=== PATIENT | male | born 2000 | race African-American/Black ===

== ENCOUNTER 2019-11-07 01:12 | Outpatient (CLI) | payer BC, SELFPAY ==
[2019-11-07 20:05] LABS: SARS-CoV-2 RNA PCR Negative
== END 2019-11-07 01:13 | disposition home or self-care (01) ==
LOC: ANHCOVIDDT 01:12
PROVIDERS: Visit Provider Otolaryngology
DX: Z01.818 Encounter for other preprocedural examination (principal); Z11.59 Encounter for screening for other viral diseases
CPT/HCPCS: 87635; C9803; U0003

== ENCOUNTER 2019-11-10 01:21 | Day surgery (SDC) | payer BC, SELFPAY ==
[2019-10-28 13:34] VITALS: BMI 32.5
--- NOTE | 2019-11-09 13:14 | WPDANESEPP ---
Anes - Eval Pre Procedure Procedure: Operation Date: 11/10/19 07:30 Proposed Procedures p Bilateral Tonsillectomy - Roshan Shook MD Date/Time: 11/09/19 13:14 Pre Op Diagnosis: Chronic tonsillitis Patient Data Age: 18 Gender: M Height: 1.75 m Weight: 99.79 kg Allergies Allergy/AdvReac Type Severity Reaction Status Date / Time No Known Allergies Allergy Verified 10/28/19 13:35 Home Medications Medication Instructions Recorded Confirmed Type multivitamin 1 tablet PO DAILY 10/28/19 10/28/19 History Patient hx anesthesia problems: none Family hx anesthesia problems: none PMFSH Social History Social History Smoking status: Never smoker Spiritual care concerns: No Exam Day of Procedure 11/09/19 13:14
[2019-11-10] VITALS (10 sets, daily range): BP systolic 109–148; BP diastolic 65–76; PULSE 72–114; RESP 16–20; TEMP 36.2–36.9; O2SAT 94–100
[2019-11-10] MEDS: LACTATED RINGERS 1,000 ML 30 ML IV CONT ×2 (06:40→08:00)
--- NOTE | 2019-11-10 07:01 | WPDANESEPPF ---
Anes - Initial Pre Proc Eval Procedure: Operation Date: 11/10/19 07:30 Proposed Procedures p Bilateral Tonsillectomy - Roshan Shook MD Date/Time: 11/10/19 07:01 Surgeon: Roshan Shook MD Pre Op Diagnosis: Chronic tonsillitis Patient Data Age: 18 Gender: M Height: 5 ft 9 in Weight: 98.6 kg Last Vital Signs Temp 97.1 F L 11/10/19 06:51 Pulse 75 11/10/19 06:51 BP 109/65 11/10/19 06:51 Pulse Ox 99 11/10/19 06:51 Allergies Allergy/AdvReac Type Severity Reaction Status Date / Time No Known Allergies Allergy Verified 10/28/19 13:35 Home Medications Medication Instructions Recorded Confirmed Type multivitamin 1 tablet PO DAILY 10/28/19 10/28/19 History Patient hx anesthesia problems: none Family hx anesthesia problems: none PMFSH Social History Social History Smoking status: Never smoker Spiritual care concerns: No Anes - Eval Final PreProcedure Day of Procedure 11/10/19 07:01 Patient weight: normal Heart: regular rate and rhythm Lungs: clear to auscultation Airway: Mallampati scale class II Neurological: alert and oriented Last oral intake: >/= 8 hours ASA classification: I Emergent: no Anesthetic plan: proceed Anesthesia type and monitoring: general ETT and standard monitoring Informed Consent: The patient's anesthetic plan and its attendant risks and benefits were discussed with the patient/family/POA. Questions were solicited and answers provided to the satisfaction of the patient/family/POA.
--- NOTE | 2019-11-10 07:13 | WPDHPUPDATE1 ---
History and Physical Update Update Date/Time: 11/10/19 07:13 Bilateral tonsillectomy History and Physical has been reviewed, including an updated exam of the patient. There are NO changes in the patient's condition. Risks, benefits, and alternatives have been discussed and questions answered. Patient agrees to proceed with procedure.
--- NOTE | 2019-11-10 07:20 | PM.IMHP ---
H&P: HPI History of Present Illness Chief complaint: Chronic tonsillitis Narrative: Uzair Ríos is a 18 year old male tonsillitis Review of Systems Review of Systems: All systems reviewed & are unremarkable except as noted in HPI and below [facility] Social History Social History Smoking status: Never smoker Spiritual care concerns: No Meds Home Medications and Allergies Home Medications Medication Instructions Recorded Confirmed Type multivitamin 1 tablet PO DAILY 10/28/19 10/28/19 History Allergies Allergy/AdvReac Type Severity Reaction Status Date / Time No Known Allergies Allergy Verified 10/28/19 13:35 Vital Signs Vital Signs - 24 hr 11/10/19 06:51 11/10/19 07:11 Temperature 36.2 C L 36.2 C L Pulse Rate 75 75 Blood Pressure 109/65 109/65 Pulse Oximetry 99 99 Exam Narrative: Exam Narrative: 3+ tonsils, inflamed Assessment and Plan Assessment and plan (1) Chronic tonsillitis: Code(s): J35.01 - Chronic tonsillitis Status: Acute Assessment and Plan: chronic tonsillitis -> tonsillectomy. Refer to outpatient H&P for full details.
--- NOTE | 2019-11-10 07:51 | PM.PROC ---
Procedure Note - Detailed Date of procedure: 11/10/19 Pre-op diagnosis: Chronic tonsillitis Post-op diagnosis: same Procedure performed: Tonsillectomy Description of procedure: DESCRIPTION OF PROCEDURE: On the date of procedure the patient was met in the preoperative area and risk and benefits of the procedure reviewed with the patient who elected to proceed with surgery. The patient was brought back to the room by the anesthesia team and placed under general endotracheal anesthesia. Once an adequate plane of anesthesia was obtained a timeout was performed to assure the patient identification the procedure to be performed were correct. The patient was then prepped and draped in the normal fashion for tonsillectomy. A head wrap and shoulder roll were placed. A Mckinley-Marcello retractor was inserted into the patient's oral cavity and the patient was suspended from the Rodriguez stand. The left tonsil grasped with a curved tonsillar tenaculum retracted medially and removed with electrocautery set on 10 standard. After the tonsil was removed the tonsillar fossa was inspected and no bleeding was noted. The right tonsil was then grasped with a curved tenaculum and retracted medially and removed in an identical manner. The tonsillar fossa was inspected and hemostasis was obtained with suction bovie electrocautery. The patient was taken out of suspension and then placed back into suspension. The tonsillar fossas were once again inspected and no bleeding was noted. A tonsil sponge was used to gently abrade the area and no bleeding was noted. The patient was removed from suspension. The Mckinley-Marcello retractor was removed from the patient's oral cavity. There was no damage to the patient's teeth or lips. Care of the patient was then returned to anesthesia who extubated in the operating room and transferred the patient to recovery in stable condition without complication. Anesthesia: GETA Surgeon: Roshan Shook MD Estimated blood loss (mL): 1 Drains: No Packing: No Pathology: none sent Complications: No immediate complications Condition: stable Disposition: same day Findings: 2+ cryptic tonsils
== END 2019-11-10 10:42 | disposition home or self-care (01) ==
PROVIDERS: Visit Provider Otolaryngology
PROC: (CPT 42826; principal; 2019-11-10 07:30)
DX: J35.01 Chronic tonsillitis (principal)
CPT/HCPCS: 42826; J1100; J2250; J2405; J2704; J3010; J7120